=== PATIENT | male | born 1980 | race Caucasian/White ===

== ENCOUNTER 2016-10-17 17:22 | Emergency (ER) | payer OTHER ==
[2016-10-17 17:25] VITALS: BMI 34.2
--- NOTE | 2016-10-17 17:28 | ED PDOC ---
Arrival/HPI - General Chief Complaint: Syncope Time Seen by Provider: 10/17/16 17:22 Historian: Patient, Parent - History of Present Illness Narrative History of Present Illness (Text): 10/17/16 17:26 36 year old male with no significant past medical history presents to the emergency department after syncopal episode in emergency room. Patient was waiting bedside with mother who was being evaluated for another complaint when he had a syncopal episode. Mother states patient had no complaints prior to syncopal episode. Upon initial assessment, patient diaphoretic, slow to respond , but answering questions. Time/Duration: Prior to Arrival Symptom Onset: Sudden Symptom Course: Resolved Associated Symptoms (Text): None Past Medical History - Provider Review Nursing Documentation Reviewed: Yes Family/Social History - Physician Review Nursing Documentation Reviewed: Yes Family/Social History: Unknown Family HX Allergies/Home Meds Allergies/Adverse Reactions: Allergies No Known Allergies Allergy (Unverified 10/17/16 17:23) Review of Systems - Physician Review All systems were reviewed & negative as marked: Yes - Review of Systems Respiratory: absent: SOB Cardiovascular: Syncope Gastrointestinal: absent: Nausea Neurological: absent: Headache, Dizziness Physical Exam Vital Signs Reviewed: Yes Vital Signs Temp Pulse Resp BP Pulse Ox 10/17/16 20:56 106/57 L 10/17/16 20:53 95 H 23 111/62 100 10/17/16 17:42 98.2 F 108 H 172/81 H 95 10/17/16 17:24 98.0 F 102 H 18 172/81 H 98 Temperature: Afebrile Blood Pressure: Hypertensive Pulse: Tachycardic Respiratory Rate: Normal Appearance: Positive for: Well-Appearing, Non-Toxic, Comfortable Pain Distress: None Mental Status: Positive for: other (Awake, answering questions) Finger Stick Blood Glucose: 100 - Systems Exam Head: Present: Atraumatic, Normocephalic Pupils: Present: PERRL Extroacular Muscles: Present: EOMI Conjunctiva: Present: Normal Mouth: Present: Moist Mucous Membranes Neck: Present: Normal Range of Motion Respiratory/Chest: Present: Clear to Auscultation, Good Air Exchange. No: Respiratory Distress, Accessory Muscle Use Cardiovascular: Present: Regular Rate and Rhythm, Normal S1, S2. No: Murmurs Abdomen: Present: Normal Bowel Sounds, Other (Obese). No: Tenderness, Distention, Peritoneal Signs Back: Present: Normal Inspection Upper Extremity: Present: Normal Inspection. No: Cyanosis, Edema Lower Extremity: Present: Normal Inspection. No: Edema Neurological: Present: GCS=15, CN II-XII Intact, Speech Normal Skin: Present: Warm, Normal Color, Diaphoretic. No: Rashes Psychiatric: Present: Other (Answering questions although slow to respond) Medical Decision Making ED Course and Treatment: Impression: 36 year old male with no significant past medical history presents after syncopal episode in emergency room. Differential Diagnosis included but are not limited to: Plan: -- EKG, CXR -- Labs -- Reassess and disposition Progress Notes: 10/17/16 17:32 Patient's blood sugar checked and found to be normal. pt awake, alert denies complaints. non specific leukoctyosis, no sinus symptoms. case discussed with dr grimaldo accepts for admission 10/17/16 21:46 - Lab Interpretations Lab Results: 10/17/16 17:25 10/17/16 17:25 Lab Results 10/17/16 17:25: Sodium 137, Potassium 3.7, Chloride 99, Carbon Dioxide 26, Anion Gap 16, BUN 13, Creatinine 1.0, Est GFR ( Amer) > 60, Est GFR (Non- Af Amer) > 60, Random Glucose 104, Calcium 9.4, Magnesium 1.8, Total Bilirubin 0.9, AST 34, ALT 55, Alkaline Phosphatase 67, Lactate Dehydrogenase 452, Total Creatine Kinase 109, Troponin I < 0.01, Total Protein 8.0, Albumin 4.4, Globulin 3.6, Albumin/Globulin Ratio 1.2 10/17/16 17:25: PT 11.0, INR 1.02, APTT 25.5 10/17/16 17:25: WBC 16.3 H, RBC 5.47, Hgb 14.9, Hct 44.0, MCV 80.4, MCH 27.2, MCHC 33.9, RDW 14.7 H, Plt Count 282, MPV 10.0, Gran % 59.0, Lymph % (Auto) 32.4 , Jefferson % (Auto) 5.0, Eos % (Auto) 3.1, Baso % (Auto) 0.5, Gran # 9.59 H, Lymph # 5.3 H, Jefferson # 0.8 H, Eos # 0.5, Baso # 0.08 - RAD Interpretation Radiology Orders: 10/17/16 17:23 CHEST PORTABLE [RAD] Stat 10/17/16 17:47 HEAD W/O CONTRAST [CT] Stat - EKG Interpretation EKG Interpretation (Text): EKG shows sinus tachycardia at 107 BPM, otherwise normal. Interpreted by me. Interpreted by ED Physician: Yes Type: 12 lead EKG - Medication Orders Current Medication Orders: Amlodipine Besylate (Norvasc) 10 mg PO DAILY BRITTANY Dextrose/Sodium Chloride (Dextrose 5%/0.45% Ns 1000 Ml) 1,000 mls @ 100 mls/hr IV .Q10H BRITTANY Last Admin: 10/17/16 20:56 Dose: 100 mls/hr Ceftriaxone Sodium (Rocephin 1 Gram Ivpb) 1 gm in 100 mls @ 100 mls/hr IVPB DAILY BRITTANY PRN Reason: Protocol Azithromycin (Zithromax 500mg In Ns) 500 mg in 250 mls @ 167 mls/hr IVPB DAILY BRITTANY PRN Reason: Protocol Loratadine (Claritin) 10 mg PO DAILY BRITTANY Discontinued Medications Amlodipine Besylate (Norvasc) 10 mg PO STAT STA Stop: 10/17/16 19:17 Last Admin: 10/17/16 20:56 Dose: - Scribe Statement The provider has reviewed the documentation as recorded by the Nishant Mora Provider Scribe Attestation: All medical record entries made by the Scribe were at my direction and personally dictated by me. I have reviewed the chart and agree that the record accurately reflects my personal performance of the history, physical exam, medical decision making, and the department course for this patient. I have also personally directed, reviewed, and agree with the discharge instructions and disposition. Disposition/Present on Arrival - Present on Arrival Any Indicators Present on Arrival: No - Disposition Have Diagnosis and Disposition been Completed?: Yes Diagnosis: Syncope Disposition: HOSPITALIZED Disposition Time: 21:47 Condition: FAIR
[2016-10-17 18:03] LABS: ADD MANUAL DIFF? NO
[2016-10-17 18:06] VITALS: TEMP 98.2
[2016-10-17 18:07] LABS: BASO # 0.08 K/mm3 (0.0-2.0); BASO % 0.5 % (0.0-3.0); EOS # 0.5 (0.0-0.7); EOS % 3.1 % (1.5-5.0); GRAN # 9.59 (1.4-6.5); LYMPH # 5.3 (1.2-3.4); LYMPH % 32.4 % (22.0-35.0); MEAN CELL VOLUME 80.4 fL (80.0-105.0); MEAN CORPUSCULAR HEMOGLOBIN 27.2 pg (25.0-35.0); MEAN CORPUSCULAR HGB CONC 33.9 g/dl (31.0-37.0); MONO # 0.8 (0.1-0.6); PLATELET COUNT 282 10^3/uL (120.0-450.0); RED CELL DISTRIBUTION WIDTH 14.7 % (11.5-14.5); WHITE BLOOD COUNT 16.3 10^3/ul (4.5-11.0)
[2016-10-17 18:23] LABS: INR 1.02 (0.93-1.08); PARTIAL THROMBOPLASTIN TIME 25.5 Seconds (23.7-30.8)
[2016-10-17 18:27] LABS: ALB/GLOB RATIO 1.2 (1.1-1.8); ALKALINE PHOSPHATASE 67 U/L (38-133); ALT/SGPT 55 U/L (7-56); AST/SGOT 34 U/L (15-59); BILIRUBIN,TOTAL 0.9 mg/dL (0.2-1.3); BLOOD UREA NITROGEN 13 mg/dL (7-21); CALCIUM 9.4 mg/dL (8.4-10.5); CARBON DIOXIDE 26 mmol/L (21-33); CHLORIDE 99 mmol/L (98-107); GFR AFRICAN-AMERICAN > 60; GLUCOSE,RANDOM 104 mg/dL (70-110); MAGNESIUM 1.8 mg/dL (1.7-2.2); POTASSIUM 3.7 mmol/L (3.6-5.0); SODIUM 137 mmol/L (132-148)
[2016-10-17 18:40] LABS: TROPONIN I < 0.01 ng/mL
--- NOTE | 2016-10-17 18:41 | CT ---
PROCEDURE: CT HEAD WITHOUT CONTRAST. HISTORY: syncope COMPARISON: None available. TECHNIQUE: Axial computed tomography images were obtained through the head/brain without intravenous contrast. Radiation dose: Total exam DLP = 871.01 mGy-cm. This CT exam was performed using one or more of the following dose reduction techniques: Automated exposure control, adjustment of the mA and/or kV according to patient size, and/or use of iterative reconstruction technique. FINDINGS: Streak artifact obscures evaluation of the skullbase. HEMORRHAGE: No intracranial hemorrhage. BRAIN: No mass effect or edema. The corral-white matter differentiation appears intact. Please note that MRI with diffusion imaging is more sensitive in the detection of acute ischemic event. VENTRICLES: No hydrocephalus. CALVARIUM: Unremarkable. PARANASAL SINUSES: Mucosal thickening of the ethmoid air cells. Mucosal thickening bilateral maxillary sinuses. Mucosal thickening of the right frontal sinus. Mucosal polyp or retention cyst, right sphenoid sinus. No air-fluid levels. MASTOID AIR CELLS: Unremarkable as visualized. No inflammatory changes. OTHER FINDINGS: None. IMPRESSION: No acute intracranial pathology identified. Mucosal thickening of the ethmoid air cells, bilateral maxillary sinuses, and right knee right frontal sinus. Mucosal polyp or retention cyst, right sphenoid sinus. Correlate clinically for sinusitis.
--- NOTE | 2016-10-17 19:42 | HP ---
HISTORY OF PRESENT ILLNESS: This patient is a 36-year-old, morbidly obese, came to visit the momSammy xavier he was in the ER, he passed out, never had seizure-like activity according to mother, who noted t hat he did not complain of anything. However, he became diaphoretic. There is no history of nausea, vomiting or diarrhea. No fever, no chills. After he had the episode of passing out, for a few mome nts he was slow, but he started to answer questions, but then it completely resolved. PAST MEDICAL HISTORY: He has no significant past medical history . MEDICATIONS: He is not on any medication. ALLERGIES: He is not allergic to any medication. SOCIAL HISTORY: Denies smoking. Does drink alcohol socially. REVIEW OF SYSTEMS: Generalized weakness, slight headache. PHYSICAL EXAMINATION: GENERAL: He is awake and alert, communicative. VITAL SIGNS: He is afebrile, pulse 102, respirations 18, blood pressure 172/81. LUNGS: Bilateral fair airflow, no rhonchi or crackle. HEART: S1, S2 audible. ABDOMEN: Soft, nontender, no rebound, no guarding. NEUROLOGIC: The patient is awake and alert, communicative. Moves all extremities. LABORATORY DATA: Sodium 137, potassium 3.7, chloride 99, CO2 26, BUN 13, creatinine 1.0, blood sugar of 104. LFTs are within normal limits. WBC 16.3, hemoglobin 14.9, hematocrit 44.0, platelet of 28 2. PT 11.0, INR 1.02, PTT 25.5. CT scan of the head is unremarkable. X-ray of chest is negative. EKG is pending. CT scan only showed mucosal thickening of ethmoid cells, bilateral maxillary sinuses in the right frontal sinus and mucosal polyp and retention cyst in the right sphenoid sinus. ASSESSMENT: 1. Syncope, etiology unclear. 2. Leukocytosis, source unknown, probably sinusitis. 3. Hypertension. 4. Morbid obesity. PLAN: We will empirically start him on Rocephin and Zithromax, start him on IV fluid, get carotid Do ppler. Neuro consult by Dr. Jacobo has been requested. We will follow up his electrolytes, CBC, CMP , lipid profile, thyroid profile in a.m. Karly Segal MD cc: [id number] TT: 10/17/2016 19:42:27 ln
[2016-10-17] MEDS: Dextrose 5%/0.45% NS 1,000 ML IV SCH (20:56)
[2016-10-17 23:59] LABS: CHOLESTEROL 165 mg/dL (130-200)
[2016-10-18 00:47] VITALS: O2SAT 98
[2016-10-18 06:09] LABS: BASO # 0.04 K/mm3 (0.0-2.0); BASO % 0.3 % (0.0-3.0); EOS # 0.5 (0.0-0.7); EOS % 3.8 % (1.5-5.0); GRAN % 63.1 % (50.0-68.0); HEMATOCRIT 43.6 % (42.0-52.0); LYMPH # 3.2 (1.2-3.4); LYMPH % 26.9 % (22.0-35.0); MEAN CELL VOLUME 80.9 fL (80.0-105.0); MEAN CORPUSCULAR HEMOGLOBIN 26.7 pg (25.0-35.0); MEAN PLATELET VOLUME 9.7 fl (7.0-11.0); MONO # 0.7 (0.1-0.6); MONO % 5.9 % (1.0-6.0); PLATELET COUNT 268 10^3/uL (120.0-450.0); WHITE BLOOD COUNT 11.7 10^3/ul (4.5-11.0)
[2016-10-18 06:10] LABS: ADD MANUAL DIFF? NO
[2016-10-18 06:35] LABS: ALB/GLOB RATIO 1.1 (1.1-1.8); ALKALINE PHOSPHATASE 69 U/L (38-133); ALT/SGPT 54 U/L (7-56); AST/SGOT 28 U/L (15-59); BILIRUBIN,TOTAL 1.1 mg/dL (0.2-1.3); BLOOD UREA NITROGEN 9 mg/dL (7-21); CALCIUM 9.2 mg/dL (8.4-10.5); CARBON DIOXIDE 29 mmol/L (21-33); CHLORIDE 103 mmol/L (98-107); GFR AFRICAN-AMERICAN > 60; GLUCOSE,RANDOM 91 mg/dL (70-110); MAGNESIUM 2.1 mg/dL (1.7-2.2); PHOSPHOROUS 4.8 mg/dL (2.5-4.5); POTASSIUM 4.1 mmol/L (3.6-5.0); SODIUM 140 mmol/L (132-148); TOTAL PROTEIN 7.7 g/dL (5.8-8.3)
[2016-10-18 06:51] LABS: FREE T4 1.14 ng/dL (0.78-2.19)
[2016-10-18 07:05] LABS: THYROID STIMULATING HORMONE 0.71 mIU/mL (0.46-4.68)
--- NOTE | 2016-10-18 08:58 | RAD ---
HISTORY: syncope COMPARISON: No prior. FINDINGS: LUNGS: No active pulmonary disease. PLEURA: No significant pleural effusion identified, no pneumothorax apparent. CARDIOVASCULAR: Normal. OSSEOUS STRUCTURES: No significant abnormalities. VISUALIZED UPPER ABDOMEN: Normal. OTHER FINDINGS: None. IMPRESSION: No active disease.
[2016-10-18 09:40] LABS: PH,URINE 6.5 (4.7-8.0); URINE BILIRUBIN NEGATIVE (NEGATIVE); URINE BLOOD TRACE-LYSED (NEGATIVE); URINE GLUCOSE (UA) NEGATIVE (NEGATIVE); URINE KETONE NEGATIVE (NEGATIVE); URINE LEUKOCYTE ESTERASE NEGATIVE Leu/uL (NEGATIVE); URINE PROTEIN NEGATIVE mg/dL (<30 mg/dL); URINE UROBILINOGEN 0.2 E.U./dL (<1 E.U./dL)
[2016-10-18 09:41] LABS: URINE APPEARANCE CLEAR (CLEAR); URINE COLOR YELLOW (YELLOW)
[2016-10-18 09:46] LABS: URINE RBC NEGATIVE /hpf (0-2); URINE WBC NEGATIVE /hpf (0-6)
--- NOTE | 2016-10-18 09:49 | CARD ---
APPROVED REPORT EKG Measurement Heart [id number] <Conclusion> Sinus tachycardia Possible Left atrial enlargement Incomplete right bundle branch block Left ventricular hypertrophy by voltage
[2016-10-18] MEDS ORDERED: cefTRIAXone 1 gm 1 GM/100 ML BAG IVPB SCH (10:00)
[2016-10-18] MEDS ORDERED: Azithromycin 500MG/NS 250ml 500 MG/250 ML BAG IVPB SCH (10:00)
[2016-10-18] MEDS: Dextrose 5%/0.45% NS 1,000 ML IV SCH (10:06)
[2016-10-18] MEDS ORDERED: Gadodiamide 287 MG/ML VIAL (20ML) IV ONE (10:27)
--- NOTE | 2016-10-18 11:18 | MRI ---
PROCEDURE: MRI BRAIN WITH AND WITHOUT CONTRAST HISTORY: syncope COMPARISON: None. TECHNIQUE: Multiplanar, multisequence MR images of the brain were obtained with and without intravenous contrast enhancement. 20 cc of Omniscan FINDINGS: HEMORRHAGE: None DWI: No evidence of an acute or early subacute infarction. BRAIN PARENCHYMA: No mass,mass effect or edema. No atrophy or chronic microvascular ischemic changes. ENHANCEMENT: No abnormal intracranial enhancement. VENTRICLES: Unremarkable. No hydrocephalus. CRANIUM: Unremarkable. ORBITS: Grossly unremarkable. PARANASAL SINUSES/MASTOIDS: There is partial opacification of the ethmoid and sphenoid sinuses as well as mucosal thickening in the maxillary and frontal sinuses VASCULAR SYSTEM: Skull base flow voids intact. OTHER FINDINGS: None . IMPRESSION: No acute intracranial findings Sinusitis
[2016-10-18 11:45] VITALS: RESP 18
--- NOTE | 2016-10-18 16:52 | CP.PCM.PCO ---
Physician Communication Note - Physician Communication Note Physician Communication Note: syncope sec to transient cerbral hypoperfusion. Not seizure. signoff
[2016-10-18 17:09] VITALS: BP 108/71; PULSE 64
--- NOTE | 2016-10-18 18:36 | US ---
PROCEDURE: Bilateral carotid artery duplex ultrasound HISTORY: Carotid stenosis syncope PHYSICIAN(S): Raymundo Pascual MD. TECHNIQUE: Duplex sonography and color-flow Doppler were used to evaluate the carotid bifurcations and limited segments of the vertebral arteries bilaterally. FINDINGS: There is mild smooth hypoechoic plaque noted at the carotid bifurcations bilaterally. The peak systolic velocity in the proximal right internal carotid artery is 72 cm/sec. This corresponds to a 0-19 percent proximal right ICA stenosis. Normal systolic velocities are noted in the proximal right external carotid artery. There is antegrade flow in the right vertebral artery. The peak systolic velocity in the proximal left internal carotid artery is 73 cm/sec. This corresponds to a 0-19 percent proximal left ICA stenosis. Normal systolic velocities are noted in the proximal left external carotid artery. There is antegrade flow in the small left vertebral artery. IMPRESSION: 1. Bilateral 0-19 percent proximal ICA stenoses. 2. Antegrade flow in both vertebral arteries.
--- NOTE | 2016-10-18 20:16 | CON ---
DATE: 10/18/2016 HISTORY OF PRESENT ILLNESS: This is a 36-year-old male with past medical history not significant, ca me here to the Emergency Room after having a seizure-like activity, passing out spell. No tongue bit e, no urinary incontinence, became diaphoretic. No nausea or vomiting, no headache. I was called to evaluate the patient. A CAT scan of the head was done, which was reported negative. MRA of the head was also normal. MEDICATIONS: Not on any medications. ALLERGIES: No known allergies to any medication. SOCIAL HISTORY: He does not smoke, he does not drink. REVIEW OF SYSTEMS: A 10-point review of system was normal. NEUROLOGIC EXAMINATION: Alert, awake, oriented x 3. No aphasia. Cranial nerves II-XII were tested. Pupils reactive. EOM intact. Visual roman full. No facial asymmetry. Tongue midline. Motor ex amination: Moves all the extremities equally. Tone normal. Deep tendon reflexes 1+. Both plantars are downgoing. Sensory appears intact. Cerebellar and gait normal. IMPRESSION: Syncope, less likely seizure. Workup did not show any problem. We will follow him up i n the office. David Jacobo MD cc: [id number] TT: 10/18/2016 20:16:12 Confirmation # [id number] Dictation # [id number] domo
--- NOTE | 2016-10-19 03:14 | DS ---
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 He stated he came to visit mother, who fell and broke her bone, and while he was in the ER, he passed out, so he was admitted, g iven IV fluids. Initial blood work was done, unremarkable. Had leukocytosis, and workup including M RI and carotid Doppler is unremarkable. PHYSICAL EXAMINATION: GENERAL: Today, he is awake and alert, communicative. VITAL SIGNS: He is afebrile, pulse 64, respirations 18, blood pressure 108/71. LUNGS: Bilateral good airflow. No rhonchi or crackle. HEART: S1, S2 audible. No murmur. ABDOMEN: Soft, nontender, no rebound, no guarding. NEUROLOGIC: He is awake and alert, communicative, ambulatory. He stated he is not feeling anxious anymore. MRI shows unremarkable. Carotid Doppler was unremarkab le. CT scan of the head does show maxillary, ethmoid sinusitis. ASSESSMENT: 1. Near syncope, probably vasovagal. 2. Sinusitis. 3. Morbid obesity. PLAN: The patient is being sent home on Levaquin 500 daily and Claritin 10 mg daily. He will follow up with PMD in a week or two. Karly Segal MD cc: [phone] TT: 10/19/2016 03:12:51 ga
== END 2016-10-18 18:17 | disposition home or self-care (01) ==
LOC: ED 17:22 → ERH 18:52 → UNDOADMOB 18:52 → OBSVTOIN 10-18 08:44 → INTOOBSV 10-18 08:44 → ERH 10-18 13:24 → ED 10-18 18:17
DX: R55 Syncope and collapse (principal)
CPT/HCPCS: 70450; 70553; 71010; 80053; 80061; 81001; 82550; 83036; 83615; 83735; 84100; 84439; 84443; 84484; 85025; 85610; 85730; 87040; 87086; 87149; 87181; 87205; 93005; 93880; 96365; 96366; 96368; 99285; A9579; J0456; J0696; J7042